=== PATIENT | female | born 1970 | race Caucasian/White ===

== ENCOUNTER → 2025-08-01 14:26 | Outpatient (CLI) | payer OTHER, SELFPAY ==
--- NOTE | 2025-08-01 14:27 | DI.MG.S_ITS ---
MM screening mammo BI: 08/01/2025. BI-RADS: 0 CLINICAL: 54-year old female for bilateral screening mammogram. Tyrer-Cuzick lifetime risk of 12.9%. No personal or first-degree family history of breast cancer. Current reported family history of breast cancer: paternal aunt. PRIOR EXAMS: None. This is a baseline mammogram. MAMMOGRAPHY TECHNIQUE: 2D and 3D (tomosynthesis) digital mammographic views obtained, with additional images as needed for full coverage. Current study was also evaluated with a Computer Aided Detection (CAD) system. DENSITY C. The breasts are heterogeneously dense, which may obscure small masses. MAMMOGRAPHY FINDINGS Right: MLO only, Lower, Middle depth: Asymmetry needing additional imaging evaluation. Left: No suspicious mass, asymmetry, microcalcification, or other abnormality seen. IMPRESSION: Right (Asymmetry): MLO only, Lower, Middle depth * Incomplete - asymmetry needing additional imaging evaluation. Left * No evidence of malignancy. RECOMMENDATIONS Right: MLO only, Lower, Middle depth * Further evaluation with diagnostic mammography and diagnostic ultrasound. Ultrasound to be performed only if needed. OVERALL ASSESSMENT CATEGORY BI-RADS-0: Incomplete - Need Additional Imaging Evaluation. ELECTRONICALLY SIGNED: Dorota Whyte M.D. on 08/01/2025 at 09:35:12 PM PT Interpreting Station ID: [id number]
== END ==
LOC: MAMMO 14:27
PROVIDERS: PCP Family Medicine; Referring Provider Family Medicine; Visit Provider Family Medicine
DX: Z12.31 Encounter for screening mammogram for malignant neoplasm of breast (principal); R92.333 Mammographic heterogeneous density, bilateral breasts; Z80.3 Family history of malignant neoplasm of breast; R73.03 Prediabetes
CPT/HCPCS: 77063; 77067

== ENCOUNTER → 2025-08-25 10:15 | Outpatient (CLI) | payer OTHER, SELFPAY ==
--- NOTE | 2025-08-25 10:16 | DI.MG.S_ITS ---
US breast RT limited, MM diagnostic mammo unilat RT: 08/25/2025 BI-RADS: 1 CLINICAL: 55-year old female for right diagnostic mammogram and right diagnostic breast ultrasound that is a recall from screening on 08/01/2025. Tyrer-Cuzick lifetime risk of 13.4%. No personal or first-degree family history of breast cancer. Current reported family history of breast cancer: paternal aunt. PRIOR EXAMS Mammogram(s): 08/01/2025. MAMMOGRAPHY TECHNIQUE: 2D and 3D (tomosynthesis) digital mammographic views obtained, with additional images as needed for full coverage. Current study was also evaluated with a Computer Aided Detection (CAD) system. ULTRASOUND TECHNIQUE: Real-time garcía scale imaging of the area of clinical interest was performed with image documentation. TARGETED Right Breast Ultrasound: Real-time ultrasound exam was performed focused to area of clinical and/or imaging concern. DENSITY Right: C. The breast is heterogeneously dense, which may obscure small masses. MAMMOGRAPHY FINDINGS Right: MLO only, Lower: The asymmetry seen on recent screening mammogram did not persist with additional imaging and is consistent with superimposition of normal breast tissue. ULTRASOUND FINDINGS Right: Lower Inner at 5:00, 4 cm from nipple: There is no sonographic abnormality to account for imaging concern on mammography. Right: Lower at 6:00, 4 cm from nipple: There is no sonographic abnormality to account for imaging concern on mammography. Right: Lower Outer at 7:00, 4 cm from nipple: There is no sonographic abnormality to account for imaging concern on mammography. IMPRESSION: Right * No evidence of malignancy. RECOMMENDATIONS Bilateral * Annual screening mammography. COMMENTS: Findings and recommendations were conveyed to the patient during today's evaluation. OVERALL ASSESSMENT CATEGORY BI-RADS-1: Negative. The [employer] recommends annual screening mammography beginning at age 40 for women with average risk of breast cancer. ELECTRONICALLY SIGNED: Dorota Whyte M.D. on 08/25/2025 at 11:43:51 AM PT Interpreting Station ID: [id number]
== END ==
LOC: MAMMO 10:15
PROVIDERS: PCP Family Medicine; Referring Provider Family Medicine; Visit Provider Family Medicine
DX: R92.8 Other abnormal and inconclusive findings on diagnostic imaging of breast (principal); N63.0 Unspecified lump in unspecified breast; R92.331 Mammographic heterogeneous density, right breast; Z80.3 Family history of malignant neoplasm of breast
CPT/HCPCS: 76642; 77065; G0279